=== PATIENT | female | born 1960 | race Two or more races ===

== ENCOUNTER 2020-02-08 18:24 | Emergency (ER) | payer OTHER ==
[~2020-02-08] VITALS: Ht 162.6 cm; Wt 108.9 kg
[2020-02-08 22:00] VITALS: BP 142/68
== END 2020-02-08 23:04 | disposition home or self-care (01) ==
LOC: ER 18:24
DX: S00.411A Abrasion of right ear, initial encounter (principal); E11.9 Type 2 diabetes mellitus without complications; E78.5 Hyperlipidemia, unspecified; I10 Essential (primary) hypertension; X58.XXXA Exposure to other specified factors, initial encounter; Y93.89 Activity, other specified; Y92.89 Other specified places as the place of occurrence of the external cause; Y99.8 Other external cause status
CPT/HCPCS: 70480